=== PATIENT | male | born 1955 | race Hispanic/Latino ===

== ENCOUNTER 2018-10-05 16:01 | Emergency (ER) | payer MEDICARE, OTHER ==
[~2018-10-05] VITALS: Ht 165.1 cm; Wt 72.6 kg
[~2018-10-05 16:01] MED LIST: GLIMEPIRIDE2 MG PO; LEVEMIR100 UNIT/1 SC; METFORMIN HCL850 MG PO
== END 2018-10-05 16:24 | disposition home or self-care (01) ==
LOC: FSED 16:01
DX: M25.511 Pain in right shoulder (principal); I10 Essential (primary) hypertension; E11.9 Type 2 diabetes mellitus without complications; E78.5 Hyperlipidemia, unspecified; G89.29 Other chronic pain
CPT/HCPCS: 99282

== ENCOUNTER → 2019-08-06 | Outpatient (CLI) | payer MEDICARE ==
--- NOTE | 2019-08-08 17:44 | Myoview Stress Test ---
DATE OF STUDY: 08/06/2019 09:59:00 Stress Test - Treadmill ONLY PROCEDURE TITLE: Rest stress single isotope SPECT imaging with pharmacologic stress and gated SPECT imaging. INDICATION: Chest pain. PROCEDURE IN DETAIL: The patient performed treadmill exercise using a Phil protocol exercising for 4 minutes 31 seconds to stage II and completing estimated workload of 7 metabolic equivalents (METS). The heart rate was 72 beats per minute at rest increased to 144 beats per minute at peak exercise, which was 94% of the maximum predicted heart rate. The resting blood pressure was 130/72 mmHg and increased to 189/76 mmHg, which was of normal response. The resting electrocardiogram demonstrated normal sinus rhythm. The patient developed chest pain with [address]-segment depression at peak exercise. Myocardial perfusion imaging was performed at rest following the injection of 11 mCi of tetrofosmin. At peak pharmacologic effect, the patient was injected with 32.3 millicuries of tetrofosmin. Gated post-stress tomographic imaging was performed. FINDINGS: The overall quality of study was fair. Left ventricular cavity was noted to be normal size on the rest and stress studies. SPECT images demonstrate a medium-size moderate perfusion defect at rest that is slightly improved on stress. Gated SPECT imaging reveals normal myocardial thickening and wall motion. IMPRESSION: Myocardial perfusion imaging is abnormal. There is a small nontransmural scar in the inferior wall, cannot rule out attenuation artifact. Abnormal clinical and ECG exercise treadmill stress test due to development of chest pain and ST-segment abnormalities at peak exercise. Overall, left ventricular systolic function was normal without regional wall motion abnormalities. Cassy Sullivan MD ABS/MODL /[id number]
== END ==
LOC: NM 09:45
PROVIDERS: ATTEND Internal Medicine
DX: R07.9 Chest pain, unspecified (principal)
CPT/HCPCS: 78452; 93017; 93306; A9502

== ENCOUNTER → 2020-01-28 | Outpatient (CLI) | payer MEDICARE ==
[~2020-01-28] MED LIST changes: +REGADENOSON 0.4 MG/5 ML SYR IV ONE
== END ==
LOC: NM 08:14
PROVIDERS: ATTEND Internal Medicine
DX: R07.9 Chest pain, unspecified (principal)
CPT/HCPCS: 78452; 93017; A9502; J2785

== ENCOUNTER → 2020-02-24 | Day surgery (SDC) | payer MEDICARE ==
[2020-02-19 11:08] LABS: BASOPHILS # (AUTO) 0.1 (0.0-0.1); BASOPHILS % 0.7 % (0.0-1.0); EOSINOPHILS # (AUTO) 0.3 (0.0-0.4); EOSINOPHILS % 2.8 % (0.0-6.0); HEMATOCRIT 33.7 % (38.2-49.6); HEMOGLOBIN 11.1 g/dL (14.0-18.0); LYMPHOCYTES # (AUTO) 2.5 (1.0-3.2); LYMPHOCYTES % 23.6 % (18.0-39.1); MEAN CORPUSCULAR HEMOGLOBIN 28.9 pg (28-32); MEAN CORPUSCULAR HGB CONC 32.9 g/dL (31-35); MEAN CORPUSCULAR VOLUME 87.8 fL (81-99); MONOCYTES # (AUTO) 0.6 (0.2-0.8); MONOCYTES % 5.9 % (4.4-11.3); NEUTROPHILS # (AUTO) 6.9 (2.1-6.9); NEUTROPHILS % 66.2 % (38.7-80.0); PLATELET COUNT 233 x10e3/uL (140-360); RED BLOOD COUNT 3.84 x10e6/uL (4.3-5.7); RED CELL DISTRIBUTION WIDTH 12.8 % (11.7-14.4)
[2020-02-19 11:19] LABS: INR 1.02; PROTHROMBIN TIME 13.9 seconds (11.9-14.5)
[2020-02-19 11:28] LABS: ALANINE AMINOTRANSFERASE 8 IU/L (0-55); ALBUMIN 3.7 g/dL (3.5-5.0); ALBUMIN/GLOBULIN RATIO 1.2 (0.8-2.0); ALKALINE PHOSPHATASE 64 IU/L (40-150); ANION GAP 12.5 mmol/L (8-16); BLOOD UREA NITROGEN 21 mg/dL (7-26); BUN/CREATININE RATIO 22 (6-25); CARBON DIOXIDE 26 mmol/L (22-29); CHLORIDE 105 mmol/L (98-107); CREATININE, SERUM 0.94 mg/dL (0.72-1.25); EST GLOMERULAR FILTRATION RATE > 60 ML/MIN (60-); GLUCOSE 67 mg/dL (74-118); POTASSIUM 4.5 mmol/L (3.5-5.1); SODIUM 139 mmol/L (136-145)
[~2020-02-24] VITALS: Ht 165.1 cm; Wt 72.6 kg
[2020-02-24] VITALS (10 sets, daily range): BP systolic 87–135; BP diastolic 60–96
[~2020-02-24] MED LIST changes: +ASPIRIN81 MG PO; +CLOPIDOGREL75 MG PO; +FENTANYL CITRATE/PF 100MCG/2 ML INJ ONE; +GABAPENTIN400 MG PO; +GABAPENTIN600 MG PO; +HYDROCHLOROTHIA25 MG PO; +IOPAMIDOL 370 MG/ML 200 ML INFUS..BTL INJ ONE; +LIDOCAINE HCL 2% LOCAL 20 ML VIAL ONE; +LISINOPRIL10 MG PO; +MIDAZOLAM HCL 2 MG/2 ML VIAL ONE; -REGADENOSON 0.4 MG/5 ML SYR IV ONE; +SIMVASTATIN20 MG PO; +SODIUM CHLORIDE 0.9% 1000ML 1,000 ML ONE; +ZOLPIDEM TARTRAT5 MG PO
== END | disposition home or self-care (01) ==
LOC: CATH LAB 07:14
PROVIDERS: ATTEND Internal Medicine
DX: I25.10 Atherosclerotic heart disease of native coronary artery without angina pectoris (principal); R94.39 Abnormal result of other cardiovascular function study; I10 Essential (primary) hypertension; E78.5 Hyperlipidemia, unspecified; E11.9 Type 2 diabetes mellitus without complications; Z01.812 Encounter for preprocedural laboratory examination; Z20.828 Contact with and (suspected) exposure to other viral communicable diseases; Z79.02 Long term (current) use of antithrombotics/antiplatelets; Z79.82 Long term (current) use of aspirin; Z79.4 Long term (current) use of insulin
CPT/HCPCS: 36415 ×2; 80053; 82948; 85025; 85610; 93458; C1887; J2001; J2250; J3010; J7030; Q9967; U0002; 99152

== ENCOUNTER → 2021-01-16 | Outpatient (CLI) | payer MEDICARE ==
[~2021-01-16] MED LIST changes: -FENTANYL CITRATE/PF 100MCG/2 ML INJ ONE; -IOPAMIDOL 370 MG/ML 200 ML INFUS..BTL INJ ONE; -LIDOCAINE HCL 2% LOCAL 20 ML VIAL ONE; -MIDAZOLAM HCL 2 MG/2 ML VIAL ONE; -SODIUM CHLORIDE 0.9% 1000ML 1,000 ML ONE
== END ==
LOC: RAD 08:20
PROVIDERS: ATTEND Internal Medicine
DX: R94.8 Abnormal results of function studies of other organs and systems (principal); R07.9 Chest pain, unspecified
CPT/HCPCS: 93306; 93925

== ENCOUNTER 2021-04-28 19:11 | Emergency (ER) | payer MEDICARE ==
[~2021-04-28] VITALS: Ht 165.1 cm; Wt 72.6 kg
== END 2021-04-28 20:15 | disposition home or self-care (01) ==
LOC: FSED 19:22
DX: K06.9 Disorder of gingiva and edentulous alveolar ridge, unspecified (principal); I10 Essential (primary) hypertension; E11.9 Type 2 diabetes mellitus without complications; E78.5 Hyperlipidemia, unspecified; J44.9 Chronic obstructive pulmonary disease, unspecified
CPT/HCPCS: 99282

== ENCOUNTER 2021-06-14 07:12 | Emergency (ER) | payer MEDICARE, OTHER ==
[~2021-06-14] VITALS: Ht 165.1 cm; Wt 72.6 kg
[2021-06-14 07:48] LABS: BASOPHILS % 0.1 % (0.0-1.0); EOSINOPHILS # (AUTO) 0.1 (0.0-0.4); EOSINOPHILS % 0.6 % (0.0-6.0); HEMATOCRIT 33.3 % (38.2-49.6); HEMOGLOBIN 10.7 g/dL (14.0-18.0); LYMPHOCYTES # (AUTO) 0.8 (1.0-3.2); LYMPHOCYTES % 9.4 % (18.0-39.1); MEAN CORPUSCULAR HEMOGLOBIN 26.4 pg (28-32); MEAN CORPUSCULAR HGB CONC 32.1 g/dL (31-35); MONOCYTES # (AUTO) 0.5 (0.2-0.8); MONOCYTES % 5.7 % (4.4-11.3); NEUTROPHILS # (AUTO) 7.1 (2.1-6.9); NEUTROPHILS % 83.7 % (38.7-80.0); PLATELET COUNT 251 x10e3/uL (140-360); RED BLOOD COUNT 4.06 x10e6/uL (4.3-5.7); RED CELL DISTRIBUTION WIDTH 17.3 % (11.7-14.4)
[2021-06-14 08:10] LABS: ALBUMIN 3.7 g/dL (3.5-5.0); ALBUMIN/GLOBULIN RATIO 1.1 (0.8-2.0); ANION GAP 11.5 mmol/L (8-16); CALCIUM 8.8 mg/dL (8.4-10.2); CREATININE, SERUM 0.78 mg/dL (0.72-1.25); POTASSIUM 3.5 mmol/L (3.5-5.1)
== END 2021-06-14 10:08 | disposition home or self-care (01) ==
LOC: ER 07:18
DX: R19.7 Diarrhea, unspecified (principal); R53.1 Weakness; I10 Essential (primary) hypertension; E11.9 Type 2 diabetes mellitus without complications; E78.5 Hyperlipidemia, unspecified; J44.9 Chronic obstructive pulmonary disease, unspecified; M54.9 Dorsalgia, unspecified; G89.29 Other chronic pain
CPT/HCPCS: 36415; 80053; 84484; 85025; 93005; 99283

== ENCOUNTER → 2022-09-21 | Outpatient (CLI) | payer MEDICARE ==
[~2022-09-21] MED LIST changes: +REGADENOSON 0.4 MG/5 ML SYR IV ONE
== END ==
LOC: NM 08:28
PROVIDERS: ATTEND Internal Medicine
DX: R07.9 Chest pain, unspecified (principal)
CPT/HCPCS: 78452; 93017; A9502; J2785

== ENCOUNTER 2024-02-05 07:20 | Emergency (ER) | payer MEDICARE ==
[~2024-02-05] VITALS: Ht 160 cm; Wt 70.1 kg
[~2024-02-05 07:20] MED LIST changes: -REGADENOSON 0.4 MG/5 ML SYR IV ONE
[2024-02-05 07:31] VITALS: TEMP 98.4
[2024-02-05] MEDS ORDERED: VITAMIN C1000 MG PO (08:20)
[2024-02-05] MEDS ORDERED: FEROSUL325 MG PO (08:20)
[2024-02-05] MEDS ORDERED: ATORVASTATIN CA20 MG PO (08:20)
[2024-02-05] MEDS ORDERED: HYDROCODON-ACE1 EAC9 (08:20)
[2024-02-05] MEDS ORDERED: LEVOCETIRIZINE D5 MG PO (08:20)
[2024-02-05] MEDS ORDERED: VITAMIN B121000 MCG (08:20)
[2024-02-05] MEDS ORDERED: IOPAMIDOL 370 MG/ML 100 ML INFUS..BTL INJ ONE ×2 (11:56→12:04)
[2024-02-05 14:32] VITALS: PULSE 66; RESP 16; O2SAT 98
[2024-02-05] MEDS ORDERED: MECLIZINE HCL12.5 MG PO (15:27)
== END 2024-02-05 15:33 | disposition home or self-care (01) ==
LOC: FSED 07:24
DX: R42 Dizziness and giddiness (principal); R07.9 Chest pain, unspecified; H53.8 Other visual disturbances; I10 Essential (primary) hypertension; E11.9 Type 2 diabetes mellitus without complications; J44.9 Chronic obstructive pulmonary disease, unspecified; E78.5 Hyperlipidemia, unspecified; M54.9 Dorsalgia, unspecified; G89.29 Other chronic pain
CPT/HCPCS: 70450; 70496; 70498; 70551; 71046; 80053; 82553; 84484; 85025; 93005; 99284; Q9967

== ENCOUNTER 2024-10-28 11:13 | Inpatient (IN) | payer MEDICARE, OTHER ==
[~2024-10-28] VITALS: Ht 165.1 cm; Wt 69.4 kg
[~2024-10-28 11:13] MED LIST changes: +ATORVASTATIN CA20 MG PO; +FEROSUL325 MG PO; +HYDROCODON-ACE1 EAC9; +LEVOCETIRIZINE D5 MG PO; +MECLIZINE HCL12.5 MG PO; +VITAMIN B121000 MCG; +VITAMIN C1000 MG PO
[2024-10-28] MEDS ORDERED: IOPAMIDOL 370 MG/ML 100 ML INFUS..BTL INJ ONE (12:08)
[2024-10-28] MEDS: HYDROCODONE/APAP 5MG-325MG TAB PO ONE (12:47)
[2024-10-28] MEDS: ACETAMINOPHEN 325 MG TAB PO ONE (12:47)
[2024-10-28] MEDS ORDERED: TRELEGY ELLIPT1 EACH (14:25)
[2024-10-28] MEDS ORDERED: TIZANIDINE HCL4 M1 PO (14:25)
[2024-10-28] MEDS ORDERED: FUROSEMIDE40 MG PO (14:25)
[2024-10-28] MEDS ORDERED: SODIUM CHLORIDE FLUSH 10 ML SYR INJ PRN (15:30)
[2024-10-28] MEDS: AZITHROMYCIN 250 MG TAB PO ONE (16:02)
[2024-10-28 16:19] VITALS: PULSE 68; RESP 18; TEMP 98.4
[2024-10-28] MEDS ORDERED: DEXTROSE 50% SYRINGE 50 ML IV PRN (16:30)
[2024-10-28] MEDS ORDERED: DOCUSATE SODIUM 100 MG CAP PO PRN (16:30)
[2024-10-28] MEDS ORDERED: MELATONIN 5 MG TABLET PO PRN (16:30)
[2024-10-28] MEDS ORDERED: DIPHENHYDRAMINE HCL 25 MG CAP PO PRN (16:30)
[2024-10-28] MEDS ORDERED: LIDOCAINE 4% PATCH TP PRN (16:30)
[2024-10-28] MEDS ORDERED: ONDANSETRON HCL INJ 2MG/ML 2ML 2 MG/ML VIAL IV PRN (16:30)
[2024-10-28] MEDS ORDERED: POTASSIUM CHLORIDE 20 MEQ TAB CR PO PRN (16:30)
[2024-10-28] MEDS ORDERED: SIMETHICONE 80 MG CHEW PO PRN (16:30)
[2024-10-28] MEDS ORDERED: HYDRALAZINE HCL 20 MG/ML VIAL IV PRN (16:30)
[2024-10-28] MEDS ORDERED: ACETAMINOPHEN 325 MG TAB PO PRN (16:30)
[2024-10-28] MEDS: ENOXAPARIN SOD INJ 40 MG/0.4 ML SYR SC SCH (17:00)
[2024-10-28 20:00] VITALS: BP 97/52; PULSE 65; RESP 19; TEMP 97.9; O2SAT 100
[2024-10-28 20:15] VITALS: BP 97/51; PULSE 65; RESP 19; TEMP 97.9; O2SAT 100; O2SAT 95
[2024-10-28 20:22] VITALS: BP 97/52; PULSE 65; RESP 19; TEMP 97.9; O2SAT 100; O2SAT 95
[2024-10-29] VITALS (7 sets, daily range): BP systolic 93–144; BP diastolic 60–72; PULSE 56–72; RESP 16–18; TEMP 98.1–98.7; O2SAT 96–100
[2024-10-29] MEDS: HYDROCODONE/APAP 10MG-325MG TAB PO PRN (05:50)
[2024-10-29 06:07] LABS: BASOPHILS % 0.3 % (0.0-1.0); EOSINOPHILS % 2.9 % (0.0-6.0); LYMPHOCYTES % 15.6 % (18.0-39.1); MONOCYTES % 10.3 % (4.4-11.3); NEUTROPHILS % 70.4 % (38.7-80.0); RED CELL DISTRIBUTION WIDTH 13.8 % (11.7-14.4)
[2024-10-29] MEDS: ALBUTEROL/IPRATROPIUM 3 ML NEB NEB PRN (06:11)
[2024-10-29 06:37] LABS: EST GLOMERULAR FILTRATION RATE 71.0 ML/MIN (>=60)
[2024-10-29] MEDS ORDERED: AZITHROMYCIN 250 MG TAB PO SCH (09:00)
[2024-10-29] MEDS: PANTOPRAZOLE SOD 40 MG TABEC PO SCH (10:22)
[2024-10-29] MEDS: METFORMIN HCL 500 MG TAB PO SCH (17:51)
[2024-10-29] MEDS: GABAPENTIN 300 MG CAP PO SCH (17:53)
[2024-10-29] MEDS: SODIUM CHLORIDE 0.9% 250ML 250 ML ONE (19:49)
[2024-10-29] MEDS ORDERED: DEXTROSE 50% SYRINGE 50 ML IV PRN (21:00)
[2024-10-29] MEDS: ATORVASTATIN 20 MG TAB PO SCH (21:28)
[2024-10-29] MEDS: INSULIN LISPRO 100 UNIT/1 ML 3ML VIAL SQ SCH (21:36)
[2024-10-30] VITALS (11 sets, daily range): BP systolic 105–128; BP diastolic 56–67; PULSE 65–76; RESP 16–19; TEMP 97.7–99.1; O2SAT 96–100
[2024-10-30] MEDS ORDERED: GLIMEPIRIDE 2 MG TAB PO SCH (09:00)
[2024-10-30] MEDS: CLOPIDOGREL BISULFATE 75 MG TAB PO SCH (09:45)
[2024-10-30] MEDS: LISINOPRIL 10 MG TAB PO SCH (09:46)
[2024-10-30] MEDS: ASPIRIN 81 MG CHEW TAB PO SCH (09:46)
[2024-10-30] MEDS: BENZONATATE 100 MG CAP PO PRN (09:59)
[2024-10-31] VITALS (7 sets, daily range): BP systolic 106–126; BP diastolic 53–64; PULSE 63–78; RESP 17–20; TEMP 97.7–98.9; O2SAT 95–100
[2024-10-31 06:39] LABS: BASOPHILS % 0.6 % (0.0-1.0); EOSINOPHILS % 4.4 % (0.0-6.0); LYMPHOCYTES % 19.2 % (18.0-39.1); MONOCYTES % 8.9 % (4.4-11.3); NEUTROPHILS % 66.6 % (38.7-80.0); RED CELL DISTRIBUTION WIDTH 13.4 % (11.7-14.4)
[2024-10-31 07:16] LABS: EST GLOMERULAR FILTRATION RATE 83.0 ML/MIN (>=60)
== END 2024-10-31 16:41 | disposition home or self-care (01) | DRG 194 ==
LOC: FSED 11:18 → ERHOLD 15:23 → MED/SURG2 18:04 → OBSVTOIN 10-30 12:34
PROVIDERS: ADMIT Internal Medicine; ATTEND Internal Medicine
DX: J18.9 Pneumonia, unspecified organism (principal); J44.0 Chronic obstructive pulmonary disease with (acute) lower respiratory infection; E11.9 Type 2 diabetes mellitus without complications; I25.10 Atherosclerotic heart disease of native coronary artery without angina pectoris; E78.5 Hyperlipidemia, unspecified; I10 Essential (primary) hypertension; M48.061 Spinal stenosis, lumbar region without neurogenic claudication; J30.2 Other seasonal allergic rhinitis; Z11.52 Encounter for screening for COVID-19; Z79.02 Long term (current) use of antithrombotics/antiplatelets; Z79.82 Long term (current) use of aspirin; Z79.51 Long term (current) use of inhaled steroids; Z79.84 Long term (current) use of oral hypoglycemic drugs; Z95.5 Presence of coronary angioplasty implant and graft; Z96.82 Presence of neurostimulator; Z83.3 Family history of diabetes mellitus; Z82.49 Family history of ischemic heart disease and other diseases of the circulatory system
CPT/HCPCS: 36415; 70496; 70498; 71046; 71250; 72131; 80048; 80076; 81003; 82948; 83880; 84484; 85025; 87040; 93005; 94640; 94760; 94799; 99284; G0378; J0696; J1650; J2470; J7050; Q9967